=== PATIENT | male | born 1925 | race Caucasian/White ===

== ENCOUNTER 2016-11-03 11:09 | Inpatient (IN) | payer OTHER, MEDICARE ==
[~2016-11-03] VITALS: Ht 182.9 cm; Wt 90.7 kg
--- NOTE | ~2016-11-03 | EKG ---
[address] [address] ELECTROCARDIOGRAM REPORT Name: PAYAL OSBORN SARATOGA Room #: 419-P [facility] M.R.#: [id number] Admission: 11/03/16 Attend Phys: Dariel Roca DO Discharge: Date of : [birth year] Report #: [id number] THIS REPORT FOR: //name// [facility] ED Test Date: 2016-11-03 Test Time: 11:53:24 Pat Name: PAYAL OSBORN Department: Room: [facility] Gender: M [employer]: MZOOK : [id number] Requested By: Octavio Dean Order Number: [id number] MD: Waqar Wayne Measurements Intervals [place] Rate: 63 P: -80 LA: 140 QRS: 83 QRSD: 108 T: 34 QT: 469 QTc: 481 Interpretive Statements Ectopic atrial rhythm Borderline right axis deviation Borderline T abnormalities, anterior leads Borderline prolonged QT interval Compared to ECG 07/22/2015 15:32:57 N[address] change in the ST and T-wave segments Electronically Signed On 11-04-2016 11:27:11 CDT by Waqar Wayne [email or web address] <ELECTRONICALLY SIGNED> By: Waqar Wayne MD, [facility] 11/04/16 1127 [id number] [id number] Waqar Wayne MD, [facility] /EPI
[2016-11-03 11:09] VITALS: BP 115/61
[~2016-11-03 11:09] MED LIST: ACETAMINOPHEN325 M1 PO; ACETAMINOPHEN650 M5 PO; ADULT LOW DOSE81 MG PO; ALEVE220 MG PO; ALLOPURINOL 30300 M1 PO; ANTIDIARRHEAL2 MG PO; APPLE CIDER VI300 MG; ASPIRIN EC325 M1 PO; ASPIRIN EC81 M1 PO; ASPIRIN325 PO; AUGMENTIN 875875 MG PO; BACTROBAN TOP; BISAC-EVAC10 MG RECTAL; CARVEDILOL3.125 MG PO; CEPHALEXIN 500500 M1 PO; CIMETIDINE 400400 MG PO; CIPRO250 M1 PO; CLARITIN10 MG PO; COLACE100 MG PO; COZAAR 50 MG TA50 M1 PO; CVS COUGH; DAPSONE25 MG PO; DAZIDOX10 MG PO; DESONIDE 0.05%; DESONIDE CR. 1515 G1; DIPHENHIST50 MG PO; DUONEB 2.5-0.5 M3 ML INH; DYMISTA NASAL S23 GM NASAL; DYMISTA NASAL S23 GM NS; DYNACIN100 MG PO; ENOXAPARIN40 MG/0.1 SUBQ; ENOXAPARIN80 MG/0.8 SUBQ; FISH OIL 1,001000 M1 PO; FLUDROCORTISON0.1 MG PO; FUROSEMIDE 20 M20 MG PO; GABAPENTIN100 MG PO; GLUCOSAMINE HC500 MG PO; GLUCOSAMINE1000 MG PO; GLYCOLAX POWDER17 G1 PO; IBUPROFEN 200200 M1 PO; IBUPROFEN 800800 M1 PO; IRON325 PO; KLOR-CON 1010 MEQ PO; LASIX 40 MG TAB40 M2 PO; LEVAQUIN 500 M500 MG PO; LEVOTHYROXIN0.025 MG PO; LEVOTHYROXIN0.075 MG PO; LOPERAMIDE 2 MG2 M1; LOPRESSOR25 PO; MELATONIN3 MG PO; MIDODRINE HCL10 MG PO; MILK OF MAGNESIA PO; MINOCYCLINE HC100 M2 PO; NIGHTTIME SLEEP50 MG PO; NYAMYC TOP; NYSTATIN 100,0015 GM TOP; OXYCODONE HCL10 M1 PO; PHILLIPS' MILK311 MG PO; POTASSIUM20 PO; PROAIR HFA8.5 GM INH; PROVENTIL HFA6.7 G1 INH; SARNA ANTI-ITC222 ML; SARNA SENSITIV222 ML; SIMVASTATIN20 MG PO; TESSALON PERLE100 MG PO; TRIAMCINOLON 0.1% TOP; TRIAMCINOLONE A80 G2; TRIAMCINOLONE TOP; TYLENOL325 MG PO; VITAMIN D2000 UNI1 PO; ZIAC 10/6.25 MG10 M1 PO; ZPAK PO; [UNRECOGNIZED DRUG - OTHER]; [UNRECOGNIZED DRUG - OTHER] TOP
[2016-11-03 11:33] LABS: MCH 31.9 pg (26.0-34.0); MCHC 34.1 g/dL (28.0-37.0); MCV 93.5 fL (80.0-100.0); RBC 4.39 mil/uL (4.50-6.00); RDW 13.3 % (10.5-14.5); WBC 11.1 thou/uL (4.0-11.0)
[2016-11-03 11:43] LABS: ANION GAP 9 mmol/L (7-16); BUN 32 mg/dL (7-18); CALCIUM 9.2 mg/dL (8.5-10.1); CHLORIDE 94 mmol/L (98-107); CO2 28 mmol/L (21-32); CREATININE 1.5 mg/dL (0.7-1.3); GLUCOSE 110 mg/dL (74-106); POTASSIUM 3.9 mmol/L (3.5-5.1); SODIUM 131 mmol/L (136-145)
[2016-11-03 11:46] LABS: APTT 33.6 Seconds (24.5-32.8); INR 1.1; PROTIME 10.9 Seconds (9.3-11.4)
[2016-11-03 11:51] LABS: TROPONIN-I < 0.04 ng/mL (<0.04-0.07)
[2016-11-03 12:57] LABS: URINE BILIRUBIN NEGATIVE (Negative); URINE BLOOD 1+ (Negative); URINE COLOR YELLOW; URINE GLUCOSE-RANDOM* NEGATIVE (Negative); URINE KETONES NEGATIVE (Negative); URINE LEUKOCYTES-REFLEX 3+ (Negative); URINE PROTEIN (DIPSTICK) NEGATIVE (Negative); URINE UROBILINOGEN 0.2 E.U./dl (0.2-1.0)
[2016-11-03 13:04] LABS: CASTS None Seen /LPF (None Seen); CRYSTALS None Seen /LPF (None Seen); SQUAMOUS None Seen /LPF (0-3); URINE RBC 0-2 Rare /HPF (0-2); URINE WBC-REFLEX >25 Many /HPF (0-5)
[2016-11-03 13:09] LABS: AMP/METHAMP Negative (Negative); BARBITURATES Negative (Negative); BENZODIAZEPINES Negative (Negative); COCAINE Negative (Negative); METHADONE Negative (Negative); OPIATES Negative (Negative); PCP Negative (Negative); THC Negative (Negative)
[2016-11-03 15:11] VITALS: BP 137/68
[2016-11-03 20:00] VITALS: BP 129/66
[2016-11-04 04:00] VITALS: BP 98/44
[2016-11-04 05:02] LABS: ABSOLUTE NEUTROPHILS 5.1 thou/uL (1.4-8.2); BASOPHILS 0.6 % (0.0-2.0); EOSINOPHILS 17.4 % (0.0-3.0); HEMATOCRIT 39.1 % (42.0-52.0); LYMPHOCYTES 10.3 % (24.0-44.0); MCH 31.7 pg (26.0-34.0); MCHC 33.4 g/dL (28.0-37.0); MONOCYTES 11.2 % (1.0-8.0); PLATELET COUNT 198 thou/uL (150-400); POLYS 60.5 % (36.0-66.0); RBC 4.11 mil/uL (4.50-6.00); RDW 13.1 % (10.5-14.5); WBC 8.5 thou/uL (4.0-11.0)
[2016-11-04 05:06] LABS: MANUAL DIFF NO
[2016-11-04 05:12] LABS: CALCIUM 8.6 mg/dL (8.5-10.1); CREATININE 1.3 mg/dL (0.7-1.3); POTASSIUM 4.1 mmol/L (3.5-5.1)
[2016-11-04 06:42] VITALS: BP 125/67
[2016-11-04 08:00] VITALS: BP 125/67
[2016-11-04 16:30] VITALS: BP 141/65
[2016-11-04 20:00] VITALS: BP 124/56
[2016-11-05 05:30] VITALS: BP 110/59
[2016-11-05 05:48] LABS: ABSOLUTE NEUTROPHILS 4.1 thou/uL (1.4-8.2); HEMATOCRIT 40.4 % (42.0-52.0); HEMOGLOBIN 13.7 gm/dL (14.0-18.0); LYMPHOCYTES 15.7 % (24.0-44.0); MCH 32.3 pg (26.0-34.0); MCV 94.9 fL (80.0-100.0); MONOCYTES 11.6 % (1.0-8.0); PLATELET COUNT 225 thou/uL (150-400); POLYS 51.7 % (36.0-66.0); RBC 4.25 mil/uL (4.50-6.00); RDW 13.1 % (10.5-14.5); WBC 7.9 thou/uL (4.0-11.0)
[2016-11-05 05:50] LABS: MANUAL DIFF NO
[2016-11-05 06:07] LABS: CALCIUM 8.7 mg/dL (8.5-10.1); CREATININE 1.3 mg/dL (0.7-1.3); POTASSIUM 3.9 mmol/L (3.5-5.1)
[2016-11-05 16:02] VITALS: BP 95/50
[2016-11-05 19:38] VITALS: BP 106/50
[2016-11-06 06:25] VITALS: BP 108/54
[2016-11-06 06:38] LABS: HEMATOCRIT 40.9 % (42.0-52.0); HEMOGLOBIN 13.9 gm/dL (14.0-18.0); MCH 32.1 pg (26.0-34.0); MCV 94.2 fL (80.0-100.0); PLATELET COUNT 242 thou/uL (150-400); RBC 4.34 mil/uL (4.50-6.00); RDW 13.4 % (10.5-14.5); WBC 8.2 thou/uL (4.0-11.0)
[2016-11-06 06:42] LABS: MANUAL DIFF YES
[2016-11-06 06:49] LABS: CREATININE 1.3 mg/dL (0.7-1.3); POTASSIUM 3.8 mmol/L (3.5-5.1)
[2016-11-06 07:19] VITALS: BP 118/57
[2016-11-06 07:53] LABS: ABSOLUTE NEUTROPHILS 4.2 thou/uL (1.4-8.2); TOTAL CELL COUNT 100
[2016-11-06] MEDS ORDERED: KEFLEX500 M1 PO (09:45)
== END 2016-11-06 16:28 | DRG 683 ==
LOC: ER 11:09 → EROBS 13:39 → 4E 13:39 → EROBS 14:39 → 4E 22:18
PROVIDERS: Emergency Medicine; Family Medicine
DX: N17.9 Acute kidney failure, unspecified (principal); N39.0 Urinary tract infection, site not specified; E87.1 Hypo-osmolality and hyponatremia; I50.9 Heart failure, unspecified; M10.9 Gout, unspecified; I11.0 Hypertensive heart disease with heart failure; E86.0 Dehydration; Z96.641 Presence of right artificial hip joint; Z79.82 Long term (current) use of aspirin; Z79.899 Other long term (current) drug therapy; Z87.891 Personal history of nicotine dependence; Z85.828 Personal history of other malignant neoplasm of skin; Z95.0 Presence of cardiac pacemaker
CPT/HCPCS: 10084